=== PATIENT | male | born 2000 | race Caucasian/White ===

== ENCOUNTER 2018-07-10 19:08 | Emergency (ER) | payer OTHER ==
--- NOTE | 2018-07-10 19:57 | XRAY Report ---
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 Procedure Date: 07/10/2018 Accession Number: [id number] / [id number] Procedure: XR - Wrist 4 View LT CPT Code: FULL RESULT: EXAM: LEFT WRIST RADIOGRAPHY EXAM DATE: 07/10/2018 07:48 PM. CLINICAL HISTORY: Fall. Pain. COMPARISON: None. TECHNIQUE: 4 views. FINDINGS: Bones: Several small mildly displaced avulsion fractures involving the distal half of the ulnar styloid process. Acute comminuted fracture extending transversely distal radial metaphysis, 40 degree anterior angulation, without intra-articular extension. Joints: Normal. No subluxations. Soft Tissues: Moderate diffuse edema. IMPRESSION: Colles fracture. RADIA
[2018-07-10] MEDS ORDERED: fentaNYL 100 MCG/2 ML VIAL IM STA (20:15)
--- NOTE | 2018-07-10 20:34 | ED Physician Documentation ---
PD HPI UPPER EXT INJURY - Stated complaint Stated Complaint: WRIST INJURY - Chief complaint Chief Complaint: Trauma Ext - History obtained from History obtained from: Patient - History of Present Illness Location: Left, Wrist Type of injury: Fall Where injury occurred: Park Timing - onset: Today Timing - details: Abrupt onset Improved by: Immobilization Worsened by: Moving, Palpating Similar symptoms before: Has not had sx before Recently seen: Not recently seen - Additonal information Additional information: patient is a 18 year old male presenting to the emergency department for left wrist pain. Patient was skateboarding and fell on his wrist. Patient denies any other trauma at this time. Review of Systems Ten Systems: 10 systems reviewed and negative Musculoskeletal: reports: Extremity pain, Joint pain, Extremity swelling, Joint swelling PD PAST MEDICAL HISTORY - Past Medical History Past Medical History: No - Past Surgical History Past Surgical History: No - Present Medications Home Medications: Ambulatory Orders Medication Instructions Recorded Confirmed Oxycodone HCl/Acetaminophen 1 - 2 each PO Q6H PRN #10 tablet 07/10/18 [Percocet 5-325 mg Tablet] - Allergies Allergies/Adverse Reactions: Allergies Allergy/AdvReac Type Severity Reaction Status Date / Time No Known Drug Allergies Allergy Verified 07/10/18 19:27 - Social History Does the pt smoke?: No Smoking Status: Never smoker Does the pt drink ETOH?: Yes Does the pt have substance abuse?: No - Immunizations Immunizations are current?: Yes - POLST Patient has POLST: No PD ED PE NORMAL - Vitals Vital signs reviewed: Yes - General General: Alert and oriented X 3, Well developed/nourished - HEENT HEENT: Atraumatic - Neck Neck: No bony TTP - Cardiac Cardiac: RRR - Respiratory Respiratory: No respiratory distress - Derm Derm: Normal color, Warm and dry - Neuro Neuro: Alert and oriented X 3 PD ED PE EXPANDED - Cardiac Cardiac: Radial strong equal - Extremities Extremities: Left wrist (tenderness and deformity of left wrist, neurovascularly intact), Motor intact, Sensory intact, Vascular intact, Tendon intact Results - Vitals Vitals: Vital Signs - 24 hr 07/10/18 07/10/18 19:22 20:45 Temperature 36.5 C Heart Rate 60 66 Respiratory 16 16 Rate Blood Pressure 147/81 H 121/88 H O2 Saturation 100 98 Oxygen O2 Source Room air - Rads (name of study) left wrist Radiology: Final report received (colles fracture) PD MEDICAL DECISION MAKING - ED course Complexity details: reviewed old records, reviewed results, re-evaluated patient , considered differential, d/w patient, d/w family ED course: Patient was seen and examined at bedside. Patient was sent for imaging. when patient returned results were reviewed. patient did have a mildly displaced fracture but was otherwise neurovascularly intact. patient was treated with fentanyl for pain and placed in a splint and sling. patient required no further inpatient work up and was stable for discharge with outpatient follow up. - Sepsis Event Vital Signs: Vital Signs - 24 hr 07/10/18 07/10/18 19:22 20:45 Temperature 36.5 C Heart Rate 60 66 Respiratory 16 16 Rate Blood Pressure 147/81 H 121/88 H O2 Saturation 100 98 Oxygen O2 Source Room air Departure - Departure Disposition: 01 Home, Self Care Clinical Impression: Fracture of distal end of left ulna Condition: Good Instructions: ED Fx Upper Ext Follow-Up: Atif Aguilar MD [Provider Admit Priv/Credential] - Prescriptions: Oxycodone HCl/Acetaminophen [Percocet 5-325 mg Tablet] 1 - 2 each PO Q6H PRN # 10 tablet PRN Reason: pain Comments: Your symptoms today are being caused by a wrist fracture. You have been placed in a splint and a sling. You should follow up with Dr. aguilar tomorrow to schedule a follow up appointment. You should ice your wrist at least 4 times a day. You should elevated at much as possible. You should return to the emergency department for loss of pulses, new, worsening or uncontrollable symptoms. Forms: Activity restrictions Discharge Date/Time: 07/10/18 20:45
[2018-07-10 20:52] VITALS: BP 121/88
== END 2018-07-10 20:45 | disposition home or self-care (01) ==
LOC: ED 19:08
DX: S52.692A Other fracture of lower end of left ulna, initial encounter for closed fracture (principal); V00.131A Fall from skateboard, initial encounter; Y93.51 Activity, roller skating (inline) and skateboarding; Y92.830 Public park as the place of occurrence of the external cause
CPT/HCPCS: 96372; 99283

== ENCOUNTER 2018-07-13 06:04 | Day surgery (SDC) | payer OTHER ==
[2018-07-13] MEDS ORDERED: ceFAZolin 2 GM/50 ML 2 GM/50 ML BAG IV ONE (06:39)
[2018-07-13] MEDS ORDERED: LACTATED RINGERS 1,000 ML IV ONE ×2 (07:03→09:48)
[2018-07-13] MEDS ORDERED: BUPIVACAINE 0.5% PF 30 ML VIAL ONE (07:06)
--- NOTE | 2018-07-13 07:12 | ANESTHESIA ---
Pre-Anesthesia VS, & Labs - Diagnosis L Fx Wrist - Procedure ORIF L Wrist Vital Signs: Temp Pulse Resp BP Pulse Ox 36.9 C 18 145/72 H 100 07/13/18 06:53 07/13/18 06:53 07/13/18 06:53 07/13/18 06:53 Height 5 ft 5 in Weight (kg) 46.1 kg Body Mass Index 18.3 - NPO >8 hours Home Medications and Allergies Home Medications: Ambulatory Orders Medication Instructions Recorded Confirmed Oxycodone HCl/Acetaminophen 1 - 2 each PO Q6H PRN #10 tablet 07/10/18 07/13/18 [Percocet 5-325 mg Tablet] Allergies/Adverse Reactions: Allergies Allergy/AdvReac Type Severity Reaction Status Date / Time No Known Drug Allergies Allergy Verified 07/10/18 19:27 Anes History & Medical History - Anesthetic History Anesthesia Complications: reports: No previous complications Family history of Anesthesia Complications: Denies Family history of Malignant Hyperthermia: Denies - Medical History Cardiovascular: reports: None Pulmonary: reports: None Gastrointestinal: reports: None Urinary: reports: None Musculoskeletal: reports: None, Other (L Fx wrist) Endocrine/Autoimmune: reports: None Skin: reports: None Smoking Status: Never smoker (vape) Exam General: Alert, Oriented x3, Cooperative Dental: WNL Mouth Opening: Greater than 4 Fingerbreadths Neck Mobility: Normal Mallampati classification: II Thyromental Distance: 4-6 cm Respiratory: Lungs clear, Normal breath sounds, No respiratory distress Cardiovascular: Regular rate Neurological: Normal speech Mental/Cognitive Status: Alert/Oriented X3 Cognitive Status: Within normal limits Plan Anesthesia Type: General Consent for Procedure(s) Verified and Reviewed: Yes Code Status: Attempt Resuscitation ASA classification: 2-Mild systemic disease Is this case an emergency?: No
[2018-07-13] MEDS ORDERED: PROPOFOL 200 MG/20 ML VIAL IVP ONE (08:00)
[2018-07-13] MEDS ORDERED: BUPIVACAINE 0.5% PF 30 ML VIAL SUBQ ONE ×2 (08:00→09:25)
[2018-07-13] MEDS ORDERED: LIDOCAINE-MPF 2% 5 ML VIAL IM ONE (08:00)
[2018-07-13] MEDS ORDERED: DEXAMETHASONE 4 MG/ML VIAL IVP ONE (08:00)
[2018-07-13] MEDS ORDERED: fentaNYL 100 MCG/2 ML VIAL IVP ONE (08:00)
[2018-07-13] MEDS ORDERED: MIDAZOLAM 2 MG/2 ML VIAL IVP ONE (08:00)
[2018-07-13] MEDS ORDERED: KETOROLAC 30 MG/ML VIAL IVP ONE (08:00)
[2018-07-13] MEDS ORDERED: ONDANSETRON 4 MG/2 ML VIAL IVP ONE (08:00)
[2018-07-13 11:08] VITALS: BP 148/86
--- NOTE | 2018-07-13 12:50 | OPERATIVE REPORT ---
DATE OF SERVICE: 07/13/2018 Physician: Justin Guthrie MD SURGEON: Justin Guthrie MD EXHIBIT BUILDER: None. ANESTHESIA PROVIDER: Homero Hinson CNA. PREOPERATIVE DIAGNOSES 1. Left comminuted distal radius fracture. 2. Left distal ulnar styloid fracture. POSTOPERATIVE DIAGNOSES 1. Left comminuted distal radius fracture. 2. Left distal ulnar styloid fracture. PROCEDURES 1. Left distal radius open reduction internal fixation. 2. Left wrist brachioradialis tenotomy. 3. Left wrist, four views mini C-arm fluoroscopic interpretation. INTRAOPERATIVE COMPLICATIONS: None noted. TOURNIQUET TIME: 88 minutes at 250 mmHg. FLUIDS: 900 mL lactated Ringer's. ANESTHESIA: General LMA and local 10 mL of 0.5% plain bupivacaine. ESTIMATED BLOOD LOSS: Less than 25 mL. PREOPERATIVE ANTIBIOTICS: 2 grams weight-based IV Ancef. COMPRESSION DEVICE: Bilateral calf SCD boots. HISTORY OF PRESENT ILLNESS/INDICATIONS: The patient is a 18-year-old male who fell on an outstretched left upper extremity while skateboarding, and he was indicated for operative treatment. Patient had previously had risks, benefits, and alternatives reviewed, which were again reviewed and highlighted in the preoperative care unit, with him and his girlfriend. Patient verbalized thorough understanding of the discussions, verbalized wish to proceed with operative treatment, and informed consent was given. PROCEDURE: On 07/13/2018, patient is identified in the preoperative care unit. He identifies his left wrist as the operative site; this is signed by the operating surgeon. Patient received preoperative weight-based IV antibiotics. He is brought to the operating room, placed supine on the operating table. General anesthesia is administered. Head, neck, and extremities placed in anatomically comfortable and safe positions. SCD boots were in place. Patient' s left upper extremity has a well-padded, tourniquet placed high on the left arm , but taking care to avoid encumbrance of the axilla. Patient's left upper extremity has a splint removed, and then the left hand, wrist, and arm all the way up to the mid arm is pre-scrubbed with chlorhexidine solution and then prepped and draped in the usual sterile fashion. Surgical pause identified the left wrist was the operative site. At this point, Esmarch bandage was used to exsanguinate the limb, tourniquet was inflated, and then an incision is made over the flexor carpi radialis through skin and then angled to the wrist crease at an oblique angle. Spreading dissection is carried out to the tendon sheath, which is incised in one small area, and then the sheath is opened proximal and distal using Metzenbaum scissors. The tendon is brought ulnarly with a blunt retractor. The posterior sheath is then incised and then developed proximally and distally , revealing the pronator quadratus, which is elevated in an L-shaped fashion off the radial styloid corner to reveal the fracture site. At this point, the fracture site is irrigated and curetted using a mini curette. The brachioradialis is identified and the radial styloid and first dorsal extensor compartment identified and protected. Brachioradialis is elevated off the radial styloid safely. Blunt retraction is brought medial and lateral to protect neurovascular structures and to show the distal radius. At this point, a reduction maneuver is achieved and nearly anatomically reduces the distal radius fracture. At this point, the appropriate size plate is selected and then provisionally placed with K wires distal only. At this point , it is adjusted and ultimately found to be acceptable position to make sure that the screws would be extraarticular, not only in the radiocarpal joint but also the DRUJ. At this point, distal ulnar-sided column screws are placed. The first is nonlocking and then the remaining are locking, followed by a radial styloid locking screw. This is followed by intermittent fluoroscopic imaging to confirm extraarticular hardware, at which point the plate is used to facilitate a few more millimeters of reduction, as the oval hole has a nonlocking screw placed bicortically. Care is taken to avoid over exuberant penetration of the second cortex to avoid injury dorsally. At this point, the remaining locking screws are placed distally and locking screws placed in the shaft of the plate. Once fracture and hardware are all noted to be in acceptable position, and hardware screws are tightened, the final fluoroscopic images are taken, and the wound is copiously irrigated. At this point, 2-0 Vicryl is used to close the pronator quadratus over the plate as best as possible, which covers the majority, greater than 90%, of the plate distally. At this point, copious irrigation is again performed, and then skin closure is performed in a layered fashion with 2-0 Vicryl, followed by interrupted nylon suture. Skin edges are everted, come together nicely. Skin is washed, dried, Xeroform dressing is applied here, and it should be noted that the small abrasion on the hypothenar eminence is kept out of the surgical field and covered the entire case; and once the surgical incision is covered, then a small Xeroform dressing, is placed on the hypothenar abrasion, which shows no significant erythema. At this point, 4 x 4 gauze is placed on the surgical wound prior to exposure of the hypothenar eminence. Soft roll is placed, and then a clamshell type volar and dorsal plaster splint is applied. Patient is placed in a sling. Patient tolerated the procedure well. Instrument and sponge counts are correct. Patient is transferred to recovery room in stable condition. PLAN: Patient will be nonweightbearing on the left upper extremity. He would be encouraged to move digits. We discussed elevation and sling use, though he may come out of the sling to exercise digits and elbow for comfort but will otherwise have the sling on, or at least be on pillows, if at rest. We will follow up in 10-14 days or sooner if problems, questions or worsening of his condition should then arise. The patient had perioperative plans reviewed. He would be on perioperative pain medication, perioperative antibiotics. Prescriptions were written. He denied any contraindication to the medications prescribed. They were notified us prior to the followup visit with problems, questions or worsening condition arise. ADDITIONAL OPERATIVE FINDINGS: Patient had DRUJ examined, noted to be stable in pronation and supination. PROCEDURAL INDICATIONS: Evaluate intraoperative position of distal radius fracture and hardware. RADIOGRAPHIC FINDINGS: Demonstrate a nearly anatomically reduced comminuted distal radius fracture with appropriate radial height, radial inclination and volar tilt. There is a metal plate on the volar aspect of the radius, which appears to be well-positioned, and shows hardware outside of the radiocapitellar joint and distal radial ulnar joint. There is a small ulnar styloid fracture. No other fractures, dislocation or diastasis appreciated. RADIOGRAPHIC IMPRESSION: Left wrist as above. TD: 07/13/2018 11:48 [facility]
== END 2018-07-13 06:05 | disposition home or self-care (01) ==
LOC: SDS 06:04
PROVIDERS: ATTEND Orthopaedic Surgery Sports Medicine
PROC: 0PSL04Z Reposition Left Ulna with Internal Fixation Device, Open Approach (ICD-10-PCS; 2018-07-13)
PROC: 0L860ZZ Division of Left Lower Arm and Wrist Tendon, Open Approach (ICD-10-PCS; 2018-07-13)
PROC: 0PSJ04Z Reposition Left Radius with Internal Fixation Device, Open Approach (ICD-10-PCS; principal; 2018-07-13 07:30)
DX: S52.502A Unspecified fracture of the lower end of left radius, initial encounter for closed fracture (principal); S52.612A Displaced fracture of left ulna styloid process, initial encounter for closed fracture; V00.131A Fall from skateboard, initial encounter; Y93.51 Activity, roller skating (inline) and skateboarding; Y99.8 Other external cause status; F41.9 Anxiety disorder, unspecified; Z72.89 Other problems related to lifestyle
CPT/HCPCS: 25000; 25607; 25652; C1713; J0690; J7120